=== PATIENT | female | born 1990 | race Caucasian/White ===

== ENCOUNTER 2024-07-15 21:24 | Emergency (ER) | payer SELFPAY ==
[2024-07-15] MEDS: Ondansetron 4 MG Tab.DIS PO STA (21:46)
== END 2024-07-15 22:45 | disposition home or self-care (01) ==
LOC: MW.ED 21:24
DX: A08.4 Viral intestinal infection, unspecified (principal); Z75.8 Other problems related to medical facilities and other health care
CPT/HCPCS: 99283; A9270